=== PATIENT | male | born 1945 | race Caucasian/White ===

== ENCOUNTER 2022-10-08 09:51 | Day surgery (SDC) | payer MEDICARE, OTHER ==
[~2022-10-08 09:51] MED LIST: CYCLOPENTOLATE 1% OPHTH DROPS 2 ML ONE; KETOROLAC 0.45% OPHTH DROPS ONE; PHENYLEPHRINE 2.5% OPHTH 2 ML DROPS ONE; PROPARACAINE 0.5% OPHTH DROPS 15 ML ONE
[2022-10-08] MEDS ORDERED: LACTATED RINGERS 1,000 ML IV ONE ×2 (10:06→11:52)
--- NOTE | 2022-10-08 11:07 | ANESTHESIA ---
Pre-Anesthesia VS, & Labs - Diagnosis left eye senile combined cataract - Procedure left eye cataract extraction with IOL implant Vital Signs: Temp Pulse Resp BP Pulse Ox O2 Flow Rate 37.1 C 79 16 192/99 H 100 0 10/08/22 10:15 10/08/22 10:15 10/08/22 10:15 10/08/22 10:15 10/08/22 10:15 10/08/22 10:15 Height: 6 ft Weight (kg): 68 kg Body Mass Index: 20.3 BMI Classification: Normal - NPO >8 hours Home Medications and Allergies Home Medications: Ambulatory Orders Atorvastatin Calcium 40 mg PO DAILY 10/08/22 Carbidopa/Levodopa [Carbidopa-Levodopa 25-100 Tab] 1 tab ORAL TID 10/08/22 Metoprolol Tartrate [Lopressor] 25 mg PO DAILY 10/08/22 lisinopriL [Zestril] 5 mg PO DAILY 10/08/22 rOPINIRole [Requip] 1 mg PO TID 10/08/22 Atorvastatin Calcium 40 mg PO DAILY 10/08/22 Carbidopa/Levodopa [Carbidopa-Levodopa 25-100 Tab] 1 tab ORAL TID 10/08/22 Metoprolol Tartrate [Lopressor] 25 mg PO DAILY 10/08/22 lisinopriL [Zestril] 5 mg PO DAILY 10/08/22 rOPINIRole [Requip] 1 mg PO TID 10/08/22 Allergies/Adverse Reactions: Allergies Allergy/AdvReac Type Severity Reaction Status Date / Time No Known Drug Allergies Allergy Verified 10/08/22 10:25 Anes History & Medical History - Anesthetic History Anesthesia Complications: reports: No previous complications - Medical History Cardiovascular: reports: Congestive heart failure, Hypertension, Arrhythmia, Valve disorder (MVP. Reports last ECHO was good.) Pulmonary: reports: None Gastrointestinal: reports: None Urinary: reports: None Neuro: reports: Parkinson's Musculoskeletal: reports: Osteoarthritis, Scoliosis Endocrine/Autoimmune: reports: None Skin: reports: None Smoking Status: Never smoker Psychosocial: reports: Alcohol (2 beers per day) History of Cancer?: No - Surgical History General: reports: Appendectomy Eyes Ears Nose Throat (EENT): reports: Tonsil/Adenoidectomy Orthopedic: reports: Other Exam General: Alert, Oriented x3, Cooperative, No acute distress Dental: WNL Mouth Openin Fingerbreadth Neck Mobility: Normal Mallampati classification: III Thyromental Distance: 4-6 cm Mental/Cognitive Status: Alert/Oriented X3, Normal for patient Plan Anesthesia Type: MAC Consent for Procedure(s) Verified and Reviewed: Yes Code Status: Attempt Resuscitation ASA classification: 3-Severe systemic disease Is this case an emergency?: No
[2022-10-08] MEDS ORDERED: MIDAZOLAM 2 MG/2 ML VIAL ONE (11:31)
[2022-10-08] MEDS ORDERED: fentaNYL 100 MCG/2 ML VIAL ONE (11:32)
[2022-10-08] MEDS ORDERED: TIMOLOL 0.5% OPHTH DROPS OPTH ONE (11:41)
[2022-10-08] MEDS ORDERED: BRIMONIDINE 0.2% OPHTH DROPS 5 ML OPTH ONE (11:41)
[2022-10-08] MEDS ORDERED: EPINEPHrine 1 MG/ML AMP IR ONE (11:41)
[2022-10-08] MEDS ORDERED: VANCOMYCIN OPHTH (TOPICAL) 10 MG/ML SYRINGE TOP ONE (11:42)
[2022-10-08] MEDS ORDERED: BSS/LIDOCAINE/EPINEPHRINE 1 ML SYRINGE IO ONE (11:42)
[2022-10-08] MEDS ORDERED: PROPARACAINE 0.5% OPHTH DROPS 15 ML EACHEYE ONE (11:42)
[2022-10-08] MEDS ORDERED: TRIAMCIN/MOXIFLOX OPHTHALMIC 0.6 ML VIAL IO ONE ×2 (11:42→13:54)
[2022-10-08 12:05] VITALS: BP 133/91
--- NOTE | 2022-10-08 12:05 | OPERATIVE REPORT ---
Operative Report - Other Other Information/Narrative: Date of Surgery: 10/08/22 Preop Dx: Visually significant cataract left eye. This was the first cataract surgery. Postop Dx: Same Procedure: Phacoemulsification with posterior chamber toric intraocular lens implant left eye Surgeon: Dr. Jay Adan Anesthesia: Monitored anesthesia care Complications: None Operative Indications: This is a 77-year-old M with progressive vision loss in the left eye due to 2+ nuclear sclerotic and vacuolar cataract. Best corrected visual acuity was 20/20 with glare to 20/630 vision in the left eye. Indications for surgery were: - Difficulty seeing street signs - Difficulty driving in low light or at night - Difficulty driving at night because of headlights from other vehicles - Difficulty with glare or bright lights in any situation The patient was consented at length concerning the risks and benefits of cataract surgery after which the patient expressed a desire to proceed with surgery. Operative Procedure: The patients cornea was marked in the pre-surgical area to indicate the axis for the toric intraocular lens. The patient was taken into OR#3 and placed under monitored anesthesia care. A surgical time-out was conducted confirming correct patient, correct procedure, and correct surgical site. The patient was given topical anesthesia and then prepped and draped in the usual sterile fashion. The eye was entered at the 6 and 3 oclock positions. Intracameral Shugarcaine was injected into the anterior chamber followed by a dispersive viscoelastic. A continuous-tear curvilinear capsulorhexis was performed. The nucleus was hydrodissected and phacoemulsified. The cortex was evacuated using automated infusion and aspiration. A cohesive viscoelastic was injected into the capsular bag and a 19.0 diopter toric intraocular lens was inserted into the bag and rotated to axis 001. Infusion and aspiration were used to evacuate the viscoelastic materials from the eye and the IOL was verified to remain on axis. The wounds were hydrated and the eye inflated to physiologic pressure using balanced salt solution. Approximately 0.25ml of a mixture of triamcinolone and moxifloxacin was injected trans-scle rally into the vitreous in the inferotemporal quadrant using a 30 gauge cannula. An additional 0.55ml of a mixture of triamcinolone and moxifloxacin was injected subconjunctivally in the superior quadrant for infection and inflammation prophylaxis. Wound integrity was checked with Weck-Elza sponges and the IOL axis was once again verified to be on the correct axis. The patient was taken from the operating room in good condition and given post-op instructions.
[2022-10-08] MEDS ORDERED: TIMOLOL 0.5% OPHTH DROPS ONE (13:54)
[2022-10-08] MEDS ORDERED: EPINEPHrine 1 MG/ML AMP ONE (13:54)
[2022-10-08] MEDS ORDERED: BSS/LIDOCAINE/EPINEPHRINE 1 ML VIAL ONE (13:54)
[2022-10-08] MEDS ORDERED: VANCOMYCIN OPHTH (TOPICAL) 10 MG/ML SYRINGE ONE (13:54)
[2022-10-08] MEDS ORDERED: BRIMONIDINE 0.2% OPHTH DROPS 5 ML ONE (13:54)
--- NOTE | 2022-10-08 14:00 | ANESTHESIA POST OP EVALUATION ---
Anesthesia Post Eval - Post Anesthesia Eval Vitals: Last Vital Signs Temp 37 C 10/08/22 11:52 Pulse 63 10/08/22 12:04 Resp 15 10/08/22 12:04 BP 133/91 H 10/08/22 12:04 Pulse Ox 100 10/08/22 12:04 O2 Flow Rate 0 10/08/22 10:15 CV Function Including HR & BP: Stable Pain Control: Satisfactory Nausea & Vomiting: Negative Mental Status: Baseline Respiratory Status: Airway Patent Hydration Status: Satisfactory Anesthesia Complications: None
== END 2022-10-08 09:52 | disposition home or self-care (01) ==
LOC: SDS 09:51
PROVIDERS: ATTEND Ophthalmology
DX: H25.812 Combined forms of age-related cataract, left eye (principal); I11.0 Hypertensive heart disease with heart failure; I50.9 Heart failure, unspecified; G20 Parkinson's disease
CPT/HCPCS: 66984; A9270; J3490; J7120; V2632

== ENCOUNTER 2022-12-10 08:45 | Day surgery (SDC) | payer MEDICARE ==
--- NOTE | 2022-12-10 07:48 | ANESTHESIA ---
Pre-Anesthesia VS, & Labs - Diagnosis R senile combined cataract - Procedure R extraction cataract w IOL Height: 6 ft - NPO >8 hours - Lab Results Lab results reviewed: Yes Home Medications and Allergies Atorvastatin Calcium 40 mg PO DAILY 10/08/22 Carbidopa/Levodopa [Carbidopa-Levodopa 25-100 Tab] 1 tab ORAL TID 10/08/22 Metoprolol Tartrate [Lopressor] 25 mg PO DAILY 10/08/22 lisinopriL [Zestril] 5 mg PO DAILY 10/08/22 rOPINIRole [Requip] 1 mg PO TID 10/08/22 Allergies/Adverse Reactions: Allergies Allergy/AdvReac Type Severity Reaction Status Date / Time No Known Drug Allergies Allergy Verified 12/10/22 09:14 Anes History & Medical History - Anesthetic History Anesthesia Complications: reports: No previous complications Family history of Anesthesia Complications: Denies Family history of Malignant Hyperthermia: Denies - Medical History Cardiovascular: reports: Congestive heart failure, Hypertension, Arrhythmia, Valve disorder Pulmonary: reports: None Gastrointestinal: reports: None Urinary: reports: None Neuro: reports: Parkinson's Musculoskeletal: reports: Osteoarthritis, Scoliosis Endocrine/Autoimmune: reports: None Skin: reports: None Smoking Status: Never smoker - Surgical History General: reports: Appendectomy Eyes Ears Nose Throat (EENT): reports: Cataracts, Tonsil/Adenoidectomy Orthopedic: reports: Other Exam General: Alert, Oriented x3 Dental: WNL Mouth Openin Fingerbreadth Neck Mobility: Normal Mallampati classification: II Respiratory: Lungs clear Cardiovascular: Regular rate Neurological: Normal speech Mental/Cognitive Status: Alert/Oriented X3, Normal for patient Cognitive Status: Within normal limits Plan Anesthesia Type: MAC Consent for Procedure(s) Verified and Reviewed: Yes Code Status: Attempt Resuscitation ASA classification: 3-Severe systemic disease Is this case an emergency?: No
[2022-12-10] MEDS ORDERED: LACTATED RINGERS 1,000 ML IV ONE ×2 (09:15→10:32)
[2022-12-10] MEDS ORDERED: MIDAZOLAM 2 MG/2 ML VIAL ONE (09:45)
[2022-12-10] MEDS ORDERED: TIMOLOL 0.5% OPHTH DROPS ONE (09:51)
[2022-12-10] MEDS ORDERED: EPINEPHrine 1 MG/ML AMP ONE (09:51)
[2022-12-10] MEDS ORDERED: BRIMONIDINE 0.2% OPHTH DROPS 5 ML ONE (09:51)
[2022-12-10] MEDS ORDERED: TRIAMCIN/MOXIFLOX OPHTHALMIC 0.6 ML VIAL IO ONE ×2 (09:51→10:18)
[2022-12-10] MEDS ORDERED: BSS/LIDOCAINE/EPINEPHRINE 1 ML SYRINGE ONE (09:51)
[2022-12-10] MEDS ORDERED: VANCOMYCIN OPHTH (TOPICAL) 10 MG/ML SYRINGE ONE (09:52)
[2022-12-10] MEDS ORDERED: EPINEPHrine 1 MG/ML AMP IR ONE (10:17)
[2022-12-10] MEDS ORDERED: BRIMONIDINE 0.2% OPHTH DROPS 5 ML OPTH ONE (10:17)
[2022-12-10] MEDS ORDERED: TIMOLOL 0.5% OPHTH DROPS OPTH ONE (10:17)
[2022-12-10] MEDS ORDERED: BSS/LIDOCAINE/EPINEPHRINE 1 ML SYRINGE IO ONE (10:17)
[2022-12-10] MEDS ORDERED: PROPARACAINE 0.5% OPHTH DROPS 15 ML RIGHTEYE ONE (10:18)
[2022-12-10] MEDS ORDERED: VANCOMYCIN OPHTH (TOPICAL) 10 MG/ML SYRINGE TOP ONE (10:18)
--- NOTE | 2022-12-10 10:43 | OPERATIVE REPORT ---
Operative Report - Other Other Information/Narrative: Date of Surgery: 12/10/22 Preop Dx: Visually significant cataract right eye. Cataract surgery was performed in the left eye on . Postop Dx: Same Procedure: Phacoemulsification with posterior chamber toric intraocular lens implant right eye Surgeon: Dr. Jay Adan Anesthesia: Monitored anesthesia care Complications: None Operative Indications: This is a 77-year-old M with progressive vision loss in the right eye due to 2+ nuclear sclerotic and vacuolar cataract. Best corrected visual acuity was 20/20 with glare to 20/40 vision in the right eye. Indications for surgery were: - Difficulty seeing words on a computer screen - Difficulty reading - Difficulty seeing words, closed captions, or game scores on TV - Difficulty seeing street signs - Difficulty driving in low light or at night - Difficulty driving at night because of headlights from other vehicles - Difficulty with glare or bright lights in any situation The patient was consented at length concerning the risks and benefits of cataract surgery after which the patient expressed a desire to proceed with surgery. Operative Procedure: The patients cornea was marked in the pre-surgical area to indicate the axis for the toric intraocular lens. The patient was taken into OR#3 and placed under monitored anesthesia care. A surgical time-out was conducted confirming correct patient, correct procedure, and correct surgical site. The patient was given topical anesthesia and then prepped and draped in the usual sterile fashion. The eye was entered at the 6 and 3 oclock positions. Intracameral Shugarcaine was injected into the anterior chamber followed by a dispersive viscoelastic. A continuous-tear curvilinear capsulorhexis was performed. The nucleus was hydrodissected and phacoemulsified. The cortex was evacuated using automated infusion and aspiration. A cohesive viscoelastic was injected into the capsular bag and a 19.5 diopter toric intraocular lens was inserted into the bag and rotated to axis 175. Infusion and aspiration were used to evacuate the viscoelastic materials from the eye and the IOL was verified to remain on axis. The wounds were hydrated and the eye inflated to physiologic pressure using balanced salt solution. Approximately 0.25ml of a mixture of triamcinolone and moxifloxacin was injected trans- sclerally into the vitreous in the inferotemporal quadrant using a 30 gauge cannula. An additional 0.55ml of a mixture of triamcinolone and moxifloxacin was injected subconjunctivally in the superior quadrant for infection and inflammation prophylaxis. Wound integrity was checked with Weck-Elza sponges and the IOL axis was once again verified to be on the correct axis. The patient was taken from the operating room in good condition and given post-op instructions.
--- NOTE | 2022-12-10 10:52 | ANESTHESIA POST OP EVALUATION ---
Anesthesia Post Eval - Post Anesthesia Eval Vitals: Last Vital Signs Temp 36.8 C 12/10/22 10:31 Pulse 59 L 12/10/22 10:38 Resp 21 12/10/22 10:38 BP 144/74 H 12/10/22 10:38 Pulse Ox 98 12/10/22 10:38 O2 Flow Rate CV Function Including HR & BP: Stable Pain Control: Satisfactory Nausea & Vomiting: Negative Mental Status: Baseline Respiratory Status: Airway Patent Hydration Status: Satisfactory Anesthesia Complications: None
[2022-12-10 10:56] VITALS: BP 161/69
== END 2022-12-10 08:46 | disposition home or self-care (01) ==
LOC: SDS 08:45
PROVIDERS: ATTEND Ophthalmology
DX: H25.811 Combined forms of age-related cataract, right eye (principal); Z98.42 Cataract extraction status, left eye; G20 Parkinson's disease; Z87.891 Personal history of nicotine dependence
CPT/HCPCS: 66984; A9270; J3490; J7120; V2632; V2787